=== PATIENT | female | born 1990 | race American Indian/Alaskan Native ===

== ENCOUNTER 2017-07-24 22:34 | Emergency (ER) | payer MEDICAID, OTHER ==
--- NOTE | 2017-07-24 23:32 | EDM.PDOC ---
ED HPI GENERAL MEDICAL PROBLEM - General Chief Complaint: General Stated Complaint: CHEST PAINS SOB Time Seen by Provider: 07/24/17 23:15 Source of Information: Reports: Patient, Family History Limitations: Reports: No Limitations - History of Present Illness INITIAL COMMENTS - FREE TEXT/NARRATIVE: 27-year-old female who was had a recurring right upper chest, shoulder, and neck discomfort intermittently over the past 3 months. Several workups including a MRI of the head and neck and chest have been negative, its been recommended she see a neurologist. Thursday she has no discomfort, but tonight the left upper chest felt sharp, hurt to breathe, it scared her and pain started radiating to both shoulders. She is now feeling better again. 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 Denies: Fever, Chills HEENT: Reports: No Symptoms Respiratory: Reports: Pleuritic Chest Pain. Denies: Shortness of Breath Cardiovascular: Reports: Chest Pain GI/Abdominal: Denies: Abdominal Pain, Nausea, Vomiting : Reports: No Symptoms Musculoskeletal: Reports: Neck Pain, Shoulder Pain, Arm Pain, Back Pain Skin: Reports: No Symptoms. Denies: Rash, Erythema Neurological: Denies: Headache ED EXAM, GENERAL - Physical Exam Exam: See Below Exam Limited By: No Limitations General Appearance: Alert, No Apparent Distress Throat/Mouth: Normal Inspection Head: Atraumatic Neck: Supple, Non-Tender Respiratory/Chest: No Respiratory Distress, Lungs Clear, Chest Non-Tender Cardiovascular: Regular Rate, Rhythm GI/Abdominal: Soft, Non-Tender Extremities: Normal Inspection, Other (I really can't reproduce her pain with range of motion of the left shoulder or arm, other than a slight pulling sensation when leaning her head to the right) Course - Vital Signs Last Recorded V/S: Last Vital Signs Temp 96.4 F 07/24/17 23:01 Pulse 60 07/24/17 23:01 Resp 16 07/24/17 23:01 BP 140/57 L 07/24/17 23:01 Pulse Ox 97 07/24/17 23:01 - Re-Assessments/Exams Free Text/Narrative Re-Assessment/Exam: 07/25/17 02:44 We'll long discussion with the symptoms possibly being related to anxiety or an inflammatory condition of the chest wall. She is going to try 40 mg of prednisone daily starting tomorrow morning for the next 5 days, and follow-up with her primary physician next week to discuss further testing such as stress testing, neurologic consult, or possibly starting antianxiety medication. Departure - Departure Time of Disposition: 23:46 Disposition: Home, Self-Care 01 Condition: Good Clinical Impression: Atypical chest pain - Discharge Information Instructions: Nonspecific Chest Pain, [id number] Referrals: PCP,None [Primary Care Provider] - Forms: ED Department Discharge Care Plan Goals: Activity as tolerated, and take for pills of prednisone with your first meal each day for the next 3-5 days. Return anytime if worsening or concerns, or recheck in 7-10 days if not improving satisfactorily. Consider discussing medicine for anxiety/stress or consider further workup such as stress test or EMG of the nerve with your regular doctor in the near future.
== END 2017-07-24 23:46 | disposition home or self-care (01) ==
LOC: JP.ED 22:34
DX: R07.89 Other chest pain (principal); Z88.0 Allergy status to penicillin; Z88.8 Allergy status to other drugs, medicaments and biological substances
CPT/HCPCS: 99283; 99285

== ENCOUNTER 2020-08-28 15:27 | Emergency (ER) | payer SELFPAY | END 2020-08-28 17:10 | disposition left against medical advice (07) | LOC: JP.ED 15:27 | DX: Z53.21 Procedure and treatment not carried out due to patient leaving prior to being seen by health care provider (principal) ==

== ENCOUNTER 2020-10-17 05:13 | Emergency (ER) | payer SELFPAY ==
[2020-10-17] MEDS ORDERED: Sodium Chloride 0.9% 10 ML Syringe FLUSH PRN (05:56)
--- NOTE | 2020-10-17 06:32 | EDM.PDOC ---
ED HPI GENERAL MEDICAL PROBLEM - General Chief Complaint: Genitourinary Problem Stated Complaint: MISCARRIAGE? Time Seen by Provider: 10/17/20 05:35 Source of Information: Reports: Patient History Limitations: Reports: No Limitations - History of Present Illness INITIAL COMMENTS - FREE TEXT/NARRATIVE: pt had her last normal period august 24. She had a positive preg test. early september. She would calulate to be about 8 weeks . She started having heavy vag bleeding tonight and she has mild cramping. This would be her 6th preg. She has one other miscarrage. Her youngest child is age 7. Onset: Today, Sudden Duration: Hour(s): Location: Reports: Abdomen, Other ( her cramping is mild. 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: Musculoskeletal History: Reports: Fracture, Other (See Below) Other Musculoskeletal History: right 4th digit fx Psychiatric History: Reports: Psych Hospitalization(s) Endocrine/Metabolic History: Reports: Obesity/BMI 30+ - Infectious Disease History Infectious Disease History: Reports: Chicken Pox - Past Surgical History GI Surgical History: Reports: Cholecystectomy Female Surgical History: Reports: Section Social & Family History - Tobacco Use Tobacco Use Status *Q: Former Tobacco User Used Tobacco, but Quit: Yes Month/Year Tobacco Last Used: 04/2017 - Caffeine Use Caffeine Use: Reports: Coffee, Soda - Recreational Drug Use Recreational Drug Use: Yes Recreational Drug Type: Reports: Marijuana/Hashish ED ROS GENERAL - Review of Systems Review Of Systems: See Below Constitutional: Reports: No Symptoms HEENT: Reports: No Symptoms Respiratory: Reports: No Symptoms Cardiovascular: Reports: No Symptoms Endocrine: Reports: No Symptoms GI/Abdominal: Reports: Abdominal Pain, Other (mild cramping/ ) : Reports: No Symptoms Musculoskeletal: Reports: No Symptoms Skin: Reports: No Symptoms ED EXAM, GI/ABD - Physical Exam Exam: See Below Text/Narrative:: pt arrived with sig bright red blood per vaginia. She is passing some smaller clots. She is 8 weeks by dates. Exam Limited By: No Limitations General Appearance: Alert, Anxious, Mild Distress Ears: Normal TMs Nose: Normal Inspection Throat/Mouth: Normal Inspection Neck: Normal Inspection Respiratory/Chest: No Respiratory Distress Cardiovascular: Regular Rate, Rhythm GI/Abdominal Exam: Soft, Non-Tender (Female) Exam: Deferred Rectal (Female) Exam: Deferred Back Exam: Normal Inspection Extremities: Normal Inspection Neurological: Alert, Oriented, Normal Cognition Course - Vital Signs Last Recorded V/S: Last Vital Signs Temp 36.4 C 10/17/20 05:29 Pulse 69 10/17/20 05:29 Resp 16 10/17/20 05:29 BP 106/49 L 10/17/20 05:29 Pulse Ox 99 10/17/20 05:29 - Orders/Labs/Meds Orders: Active Orders 24 hr Category Date Time Status OB Ltd 1 or More Fetus [US] Stat Exams 10/17/20 06:33 Ordered Sodium Chloride 0.9% [Saline Flush] Med 10/17/20 05:56 Active 10 ml FLUSH ASDIRECTED PRN Saline Lock Insert [OM.PC] Routine Oth 10/17/20 05:56 Ordered Medication Orders Sodium Chloride (Sodium Chloride 0.9% 10 Ml Syringe) 10 ml FLUSH ASDIRECTED PRN PRN Reason: Keep Vein Open Last Admin: 10/17/20 06:11 Dose: 10 ml Documented by: MICKEY Labs: Laboratory Tests 10/17/20 10/17/20 10/17/20 Range/Units 06:07 06:07 06:07 WBC 16.1 H (4.5-11.0) K/uL RBC 4.08 (3.30-5.50) M/uL Hgb 11.7 L (12.0-15.0) g/dL Hct 36.5 (36.0-48.0) % MCV 90 (80-98) fL MCH 29 (27-31) pg MCHC 32 (32-36) % Plt Count 314 (150-400) K/uL Neut % (Auto) 79.8 H (36-66) % Lymph % (Auto) 14.4 L (24-44) % [place] % (Auto) 4.2 (2-6) % Eos % (Auto) 1.4 L (2-4) % Baso % (Auto) 0.2 (0-1) % Sodium 138 L (140-148) mmol/L Potassium 3.8 (3.6-5.2) mmol/L Chloride 105 (100-108) mmol/L Carbon Dioxide 21 (21-32) mmol/L Anion Gap 15.8 H (5.0-14.0) mmol/L BUN 12 (7-18) mg/dL Creatinine 0.7 (0.6-1.0) mg/dL Est Cr Clr Drug Dosing 114.28 mL/min Estimated GFR (MDRD) > 60 (>60) Glucose 146 H (74-106) mg/dL Calcium 8.7 (8.5-10.1) mg/dL HCG, Quant 13065 H (0-6) mIU/mL Meds: Medications Generic Name Dose Route Start Last Admin Trade Name Freq PRN Reason Stop Dose Admin Sodium Chloride 10 ml 10/17/20 05:56 10/17/20 06:11 Sodium Chloride 0.9% 10 Ml Syringe FLUSH 10 ml ASDIRECTED PRN Administration Keep Vein Open - Re-Assessments/Exams Free Text/Narrative Re-Assessment/Exam: 10/17/20 07:26 pt had quatative hcg that was appropiate for dates. Her bleeding has now stopped. She had a Us which showed a baby at 7 weeks 5 days with good cardiac activity Departure - Departure Time of Disposition: 07:27 Disposition: Home, Self-Care 01 Condition: Fair Clinical Impression: Vaginal bleeding affecting early - Discharge Information Referrals: PCP,None [Primary Care Provider] - Forms: ED Department Discharge Care Plan Goals: low activity, no intercourse, rtc if bleeding should be heavy. make an appt for ob care. Sepsis Event Note (ED) - Evaluation Sepsis Screening Result: No Definite Risk - Focused Exam Vital Signs: Vital Signs Temp Pulse Resp BP Pulse Ox 10/17/20 05:29 36.4 C 69 16 106/49 L 99 - My Orders Last 24 Hours: My Active Orders 10/17/20 05:56 Sodium Chloride 0.9% [Saline Flush] 10 ml FLUSH ASDIRECTED PRN Saline Lock Insert [OM.PC] Routine 10/17/20 06:33 OB Ltd 1 or More Fetus [US] Stat - Assessment/Plan Last 24 Hours: My Active Orders 10/17/20 05:56 Sodium Chloride 0.9% [Saline Flush] 10 ml FLUSH ASDIRECTED PRN Saline Lock Insert [OM.PC] Routine 10/17/20 06:33 OB Ltd 1 or More Fetus [US] Stat
--- NOTE | 2020-10-17 09:53 | US ---
OB Ltd 1 or More Fetus CLINICAL HISTORY: Vaginal bleeding FINDINGS: There is a gestational sac in the endometrial cavity. It measures 1.3 x 3.9 x 1.9 cm. Mean sac diameter correlates to a 7 week 3 day gestation. There is a pole. [place] rump length measures 1.3 cm which correlates to a 7 week 4 day gestation. OSCAR is to 522. There is heart beat at 158 bpm. Yolk sac is identified IMPRESSION: Live intrauterine at 7 weeks 4 days by crown-rump length
== END 2020-10-17 07:50 | disposition home or self-care (01) ==
LOC: JP.ED 05:13
DX: O20.9 Hemorrhage in early pregnancy, unspecified (principal); O99.211 Obesity complicating pregnancy, first trimester; Z3A.01 Less than 8 weeks gestation of pregnancy; Z87.891 Personal history of nicotine dependence
CPT/HCPCS: 36415; 76815; 76815-26; 80048; 84702; 85025; 99283; 99284-25

== ENCOUNTER 2021-08-13 12:42 | Emergency (ER) | payer MEDICAID ==
[2021-08-13] MEDS ORDERED: Lidocaine 4% Top Soln 50 ML Bottle TOP ONE (13:06)
== END 2021-08-13 13:27 | disposition home or self-care (01) ==
LOC: JP.ED 12:42
DX: H92.01 Otalgia, right ear (principal); E66.9 Obesity, unspecified; Z68.39 Body mass index [BMI] 39.0-39.9, adult; Z88.5 Allergy status to narcotic agent; Z88.0 Allergy status to penicillin; Z87.891 Personal history of nicotine dependence
CPT/HCPCS: 99281; 99282; A9270-GY

== ENCOUNTER 2025-01-11 17:27 | Emergency (ER) | payer MEDICAID | END 2025-01-11 18:38 | disposition home or self-care (01) | LOC: JP.ED 17:27 | DX: J01.00 Acute maxillary sinusitis, unspecified (principal); E66.9 Obesity, unspecified; F17.200 Nicotine dependence, unspecified, uncomplicated; Z68.39 Body mass index [BMI] 39.0-39.9, adult; Z90.49 Acquired absence of other specified parts of digestive tract; Z88.0 Allergy status to penicillin; Z88.8 Allergy status to other drugs, medicaments and biological substances | CPT/HCPCS: 99283 ==